=== PATIENT | female | born 1980 | race Caucasian/White ===

== ENCOUNTER 2017-08-01 19:22 | Emergency (ER) | payer OTHER ==
[2017-08-01 21:13] VITALS: BP 142/91
== END 2017-08-01 21:13 | disposition home or self-care (01) ==
LOC: ED 19:22
DX: M54.16 Radiculopathy, lumbar region (principal); M54.5 Low back pain; Z98.51 Tubal ligation status
CPT/HCPCS: J1885

== ENCOUNTER 2019-05-16 16:59 | Emergency (ER) | payer OTHER ==
[~2019-05-16] VITALS: Ht 160 cm; Wt 115.2 kg
[2019-05-16 17:24] VITALS: Ht 160 cm; Wt 115.2 kg
[2019-05-16 20:21] VITALS: BP 121/75
== END 2019-05-16 20:21 | disposition home or self-care (01) ==
LOC: ED 16:59
DX: M54.42 Lumbago with sciatica, left side (principal); M23.92 Unspecified internal derangement of left knee
CPT/HCPCS: J1885

== ENCOUNTER 2019-11-23 11:18 | Emergency (ER) | payer OTHER ==
[~2019-11-23] VITALS: Ht 160 cm; Wt 122.0 kg
[2019-11-23 11:28] VITALS: Ht 160 cm; Wt 122.0 kg
[2019-11-23 14:55] VITALS: BP 130/87
== END 2019-11-23 14:55 | disposition home or self-care (01) ==
LOC: ED 11:18
DX: M54.5 Low back pain (principal)
CPT/HCPCS: J1885